=== PATIENT | male | born 1955 | race Caucasian/White ===

== ENCOUNTER 2017-08-25 09:16 | Day surgery (SDC) | payer OTHER ==
[2017-08-25] MEDS ORDERED: FENTAnyl 50 MCG/ML VIAL (11:02)
[2017-08-25] MEDS ORDERED: MIDAZOLAM 1 MG/ML 2 ML INJ (11:02)
== END 2017-08-25 11:13 | disposition home or self-care (01) ==
LOC: GIL 09:16
DX: Z12.11 Encounter for screening for malignant neoplasm of colon (principal); K57.90 Diverticulosis of intestine, part unspecified, without perforation or abscess without bleeding; K64.8 Other hemorrhoids
CPT/HCPCS: 45378

== ENCOUNTER 2017-12-23 05:48 | Inpatient (IN) | payer OTHER ==
[2017-12-23] MEDS: ACETAMINOPHEN 1000MG/100ML IV 100 ML IVPB (06:33)
[2017-12-23] MEDS: DEXAMETHASONE 4 MG/ML 1 ML INJ IV (06:33)
[2017-12-23] MEDS: ONDANSETRON 4 MG INJ IV ×5 (06:33→20:55)
[2017-12-23] MEDS: LACTATED RINGER'S 1,000 ML IV* (06:34)
[2017-12-23] MEDS: LANSOPRAZOLE 30 MG CAP PO (06:34)
[2017-12-23] MEDS: oxyCODONE (CR) 10 MG TAB [oxyCONTIN] PO (06:34)
[2017-12-23] MEDS ORDERED: PROPOFOL 1000 MG INJ (07:00)
[2017-12-23] MEDS ORDERED: GLYCOPYRROLATE 0.4 MG INJ (07:12)
[2017-12-23] MEDS ORDERED: ROCURONIUM 50 MG INJ (07:12)
[2017-12-23] MEDS ORDERED: FENTAnyl 50 MCG/ML VIAL (07:12)
[2017-12-23] MEDS ORDERED: PROPOFOL 20 ML (07:12)
[2017-12-23] MEDS ORDERED: NEOSTIGMINE 3 MG/3 ML SYRINGE (07:12)
[2017-12-23] MEDS ORDERED: CEFAZOLIN 1 GM INJ (07:12)
[2017-12-23] MEDS ORDERED: MIDAZOLAM 1 MG/ML 2 ML INJ (07:12)
[2017-12-23] MEDS ORDERED: ONDANSETRON 4 MG INJ (07:12)
[2017-12-23] MEDS ORDERED: morphine SULFATE/PF (10 MG/10 ML) INJ (07:13)
[2017-12-23] MEDS ORDERED: DEXAMETHASONE 4 MG/ML 1 ML INJ (07:13)
[2017-12-23] MEDS ORDERED: ROPIVACAINE 0.5 % 30 ML VIAL (07:13)
[2017-12-23] MEDS ORDERED: BUPIVACAINE 0.75%/DEXT (SPINAL) 2 ML INJ (07:30)
[2017-12-23] MEDS ORDERED: CEFAZOLIN 2 GM/50 ML (PMX) 50 ML IVPB (07:30)
[2017-12-23] MEDS: SOD CHLORIDE 0.9% 1,000 ML IV ×2 (07:38→23:51)
[2017-12-23] MEDS ORDERED: MAGNESIUM HYDROXIDE 30ML CUP PO (08:00)
[2017-12-23] MEDS ORDERED: DIPHENHYDRAMINE 50 MG INJ IV ×2 (08:00→08:30)
[2017-12-23] MEDS ORDERED: BISACODYL 10 MG SUPP PR (08:00)
[2017-12-23] MEDS ORDERED: KETOROLAC 15 MG INJ IV (08:00)
[2017-12-23] MEDS ORDERED: BETHANECHOL 25 MG TAB PO (08:00)
[2017-12-23] MEDS ORDERED: SENNA/DOCUSATE NA (8.6MG/50MG) TAB PO (08:00)
[2017-12-23] MEDS ORDERED: oxyCODONE 5 MG TAB PO ×3 (08:00)
[2017-12-23] MEDS ORDERED: NA PHOSPHATE/BIPHOS 133 ML ENEMA PR (08:00)
[2017-12-23] MEDS ORDERED: NALOXONE (0.4 MG/ML) INJ IV ×2 (08:00→08:30)
[2017-12-23] MEDS: TRANEXAMIC ACID 1,000 MG in NS 100 ML PRE-OP X1 IVPB (08:18)
[2017-12-23] MEDS: BACITRACIN 50000 UNITS INJ (08:28)
[2017-12-23] MEDS: HIP PAIN COCKTAIL (CEFUROXIME) INJ (08:28)
[2017-12-23] MEDS: POLYMYXIN B 500000 UNIT INJ (08:28)
[2017-12-23] MEDS ORDERED: EPHEDrine SULFATE 50 MG/5 ML SYG IV (08:30)
[2017-12-23] MEDS ORDERED: MIDAZOLAM 1 MG/ML 2 ML INJ IV (08:30)
[2017-12-23] MEDS ORDERED: IPRATROPIUM (NEB) 0.5 MG/2.5 ML AMP HHN (08:30)
[2017-12-23] MEDS ORDERED: ALBUTEROL 0.083% (NEB) 2.5 MG/3 ML AMP HHN (08:30)
[2017-12-23] MEDS ORDERED: LABETALOL HCL 20MG INJ IV (08:30)
[2017-12-23] MEDS ORDERED: HYDROmorphONE 1 MG/5 ML IV SYRINGE IV ×3 (08:30)
[2017-12-23] MEDS ORDERED: hydrALAzine 20 MG INJ IV (08:30)
[2017-12-23] MEDS ORDERED: TRIMETHOBENZAMIDE 100 MG/ML VIAL IM (08:30)
[2017-12-23] MEDS ORDERED: MEPERIDINE 25 MG INJ IV (08:30)
[2017-12-23] MEDS ORDERED: OXYCODONE/ACETAMINOPHEN (5/325) TAB PO ×2 (08:30)
[2017-12-23] MEDS ORDERED: FENTAnyl 50 MCG/ML VIAL IV ×3 (08:30)
[2017-12-23] MEDS ORDERED: SUGAMMADEX SODIUM 200 MG/2 ML VIAL IV (09:37)
[2017-12-23] MEDS: TRANEXAMIC ACID 1,000 MG in NS 100 ML INTRA-OP X1 IVPB (09:56)
[2017-12-23] MEDS: DOCUSATE SODIUM 100 MG CAP PO ×2 (10:50→10:52)
[2017-12-23] MEDS: ASPIRIN (EC) 325 MG TAB PO ×3 (10:50→20:55)
[2017-12-23] MEDS: CEFAZOLIN 1 GM/50 ML (PMX) 50 ML IVPB ×3 (10:52→23:51)
[2017-12-23] MEDS: GABAPENTIN 100 MG CAP PO ×2 (11:45→20:55)
[2017-12-24] MEDS: ONDANSETRON 4 MG INJ IV (02:00)
[2017-12-24 05:43] LABS: ADD MAN DIFF? NO
[2017-12-24 05:45] LABS: WHITE BLOOD COUNT 12.1 10^3/ul (4.8-10.8)
[2017-12-24 05:45] LABS: BASOPHILS % 0.1 % (0.0-2.0); HEMATOCRIT 36.3 % (42.0-52.0); HEMOGLOBIN 12.3 g/dl (14.0-18.0); LYMPHOCYTES # 1.3 10^3/ul (0.8-2.9); LYMPHOCYTES % 10.6 % (15.0-51.0); MEAN CORPUSCULAR HEMOGLOBIN 31.3 pg (29.0-33.0); MEAN CORPUSCULAR HGB CONC 33.9 g/dl (32.0-37.0); MEAN CORPUSCULAR VOLUME 92.4 fl (82.0-101.0); MEAN PLATELET VOLUME 11.5 fl (7.4-10.4); MONOCYTE # 0.9 10^3/ul (0.3-0.9); MONOCYTES % 7.2 % (0.0-11.0); NEUTROPHIL # 9.8 10^3/ul (1.6-7.5); NEUTROPHILS % 81.5 % (39.0-77.0); PLATELET COUNT 134 10^3/UL (140-415); POSITIVE DIFF @See below; RED BLOOD COUNT 3.93 10^6/ul (4.70-6.10)
[2017-12-24 06:24] LABS: ANION GAP 10 (8-16); BLOOD UREA NITROGEN 14 mg/dl (7-20); CALCIUM 8.3 mg/dl (8.4-10.2); CARBON DIOXIDE 25 mmol/L (21-31); CHLORIDE 108 mmol/L (97-110); CREATININE 0.68 mg/dl (0.61-1.24); GLUCOSE 115 mg/dl (70-220); POTASSIUM 4.2 mmol/L (3.5-5.1); SODIUM 139 mmol/L (135-144)
[2017-12-24] MEDS: SOD CHLORIDE 0.9% 1,000 ML IV (08:38)
[2017-12-24] MEDS: FERROUS FUMARATE (SR) TAB PO (08:53)
[2017-12-24] MEDS: ASPIRIN (EC) 325 MG TAB PO (08:53)
[2017-12-24] MEDS: GABAPENTIN 100 MG CAP PO (08:53)
[2017-12-24] MEDS: CELECOXIB 200 MG CAP PO (08:54)
[2017-12-25] MEDS ORDERED: PANTOPRAZOLE (EC) 40 MG TAB PO (06:00)
== END 2017-12-24 14:33 | disposition home health service (06) | DRG 470 ==
LOC: REC 05:48 → MS1 11:29
PROC: 0SRD0JA Replacement of Left Knee Joint with Synthetic Substitute, Uncemented, Open Approach (ICD-10-PCS; principal; 2017-12-23 07:30)
DX: M17.12 Unilateral primary osteoarthritis, left knee (principal)
CPT/HCPCS: 73560; 80048; 85025; 87081; 87086; 88304; 88311; 97110; 97116; 97161; 97167; 97530; 97535